=== PATIENT | male | born 1980 | race Caucasian/White ===

== ENCOUNTER 2024-07-09 15:00 | Emergency (ER) | payer MEDICARE, MEDICAID, SELFPAY ==
[2024-07-09 15:01] VITALS: BMI 26.6
[2024-07-09 15:26] VITALS: BP 154/91; PULSE 125; RESP 20; TEMP 39.6; O2SAT 100
--- NOTE | 2024-07-09 15:31 | XR_ITS ---
Examination: PA lateral chest 2 views AP liver. The liver shows 2 views Presented time: July 09, 2024 1615 hours INDICATIONS: Coughing fever beginning 2 days ago. FINDINGS: Basilar bronchitis pattern. No lobar pneumonia. Normal heart size IMPRESSION: Perihilar bronchitis pattern
--- NOTE | 2024-07-09 15:32 | PD.EDRME ---
Rapid Medical Screening Exam RME Arrival date/time: 07/09/24 15:00 43-year-old male with a history of developmentally delayed presents to the emergency room with a chief complaint of cough, fever x 2 days I have greeted and performed a focused initial assessment of this patient. A comprehensive ED assessment and evaluation of the patient, analysis of all test results, and completion of the medical decision making process will be conducted by additional ED providers. Chief Complaint: Flu Like Symptoms Time Seen by Provider: 07/09/24 15:21 Vital signs: Vital Signs Temperature 103.2 F H 07/09/24 15:26 Pulse Rate 125 H 07/09/24 15:26 Respiratory Rate 20 07/09/24 15:26 Blood Pressure 154/91 H 07/09/24 15:26 Pulse Oximetry (%) 100 07/09/24 15:26 Oxygen Delivery Method Room Air 07/09/24 15:26 Vital signs reviewed by provider: Yes
[2024-07-09 15:45] VITALS: TEMP 39.6
[2024-07-09] MEDS: ACETAMINOPHEN 500 MG TABLET 1000 MG PO (15:45)
[2024-07-09] MEDS: IBUPROFEN TAB 600 MG TABLET PO (15:45)
[2024-07-09 15:54] LABS: Lactate (Lactic Acid) 3.4 mMol/L (0.4-2.0)
[2024-07-09 15:58] LABS: Basophils % (Auto) 0 % (0-2.5); Eosinophils % (Auto) 0 % (0-10); Hematocrit 34.7 % (41.0-53.0); Hemoglobin 11.9 g/dL (13.5-16.0); Immature Granulocytes % (Auto) 0 % (0-0); Immature Granulocytes Auto 0.02 Thou/mm3 (0.00-0.00); Lymphocytes % (Auto) 15 % (10-50); Mean Corpuscular HGB Conc 34.3 g/dl (31.0-37.0); Mean Corpuscular Hemoglobin 30.9 pg (25.0-35.0); Mean Corpuscular Volume 90 fL (80-100); Monocytes # (Auto) 0.7 Thou/mm3 (0.0-0.8); Monocytes % (Auto) 11 % (0-12); Neutrophils # (Auto) 4.8 Thou/mm3 (1.8-7.7); Neutrophils % (Auto) 74 % (37-80); Nucleated Red Blood Cell % 0 /100 WBC (0); Red Blood Count 3.85 Miln/mm3 (4.50-5.90); White Blood Count 6.5 Thou/mm3 (3.8-10.6)
[2024-07-09 16:20] LABS: Alanine Aminotransferase 95 U/L (10-49); Albumin, Serum 4.4 gm/dL (3.5-5.0); Albumin/Globulin Ratio 1.2 (1.2-2.2); Alkaline Phosphatase 383 U/L (46-116); Anion Gap 11 (7-16); Aspartate Amino Transferase 59 U/L (0-34); BUN/Creatinine Ratio 15 Ratio (12-20); Bilirubin,Total 0.4 mg/dL (0.3-1.2); Blood Urea Nitrogen 16 mg/dL (9-23); Calcium 9.4 mg/dL (8.3-10.6); Calcium (Corrected) 9.4 mg/dL (8.5-10.1); Carbon Dioxide 26.2 mMol/L (20.0-31.0); Chloride 98 mMol/L (98-107); Creatinine (Component) 1.1 mg/dL (0.6-1.3); Estimated Creatinine Clearance 87.5 mL/min (>60); Globulin 3.7 gm/dL (2.3-3.5); Glucose 111 mg/dL (74-106); Osmolality,Calculated 272 (275-295); Potassium 4.6 mMol/L (3.4-5.1); Procalcitonin 0.11 ng/ml (0.0-0.49); Sodium 135 mMol/L (136-145); Total Protein 8.1 gm/dL (5.7-8.2); eGFR > 60 See Note
[2024-07-09 16:42] LABS: Platelet Count 67 Thou/mm3 (140-440); Slide Review Platelets confirmed
[2024-07-09 18:50] LABS: Reflex Lactate? Y
--- NOTE | 2024-07-09 19:08 | PC.NURSE ---
CALLED PT IN ER LOBBY AND OUTSIDE AND NO ANSWER.
[2024-07-09 19:18] LABS: Lactic Acid, 3 HR 1.1 mMol/L (0.4-2.0)
[2024-07-09 19:20] VITALS: TEMP 37.4
--- NOTE | 2024-07-09 19:25 | PD.EDADULT ---
ED General RME/HPI General Chief complaint: Flu Like Symptoms Stated complaint: Fever Time Seen by Provider: 07/09/24 15:21 Arrival date/time: 07/09/24 15:00 CC: Fever HPI ongoing for the past 2 days. The patient has a moderate intellectual disability along with a seizure disorder. Patient presents to the ER from [facility] care facility with a service worker helper for fever x 2 days no nausea vomiting cough is appreciated. Patient is stoic, has high tolerance level. Patient is initially noted to have a temperature of 103.2 was given 1000 mg of Tylenol and 600 mg of ibuprofen. Currently at the time of the exam at 1925, the patient had a temperature of 99.1. He is awake alert looking around appears not in any acute distress. RME / HPI RME / HPI narrative: 07/09/24 15:00 43-year-old male with a history of developmentally delayed presents to the emergency room with a chief complaint of cough, fever x 2 days I have greeted and performed a focused initial assessment of this patient. A comprehensive ED assessment and evaluation of the patient, analysis of all test results, and completion of the medical decision making process will be conducted by additional ED providers. Related Data Home Medications ?Medication ?Instructions ?Recorded ?Confirmed aripiprazole 10 mg tablet (Abilify) 10 mg PO QDAY 07/09/18 04/04/23 baclofen 10 mg tablet 10 mg PO BID 07/09/18 04/04/23 chlorpheniramine maleate 4 mg 4 mg PO Q4H 07/09/18 04/04/23 tablet (Aller-Chlor) divalproex 500 mg tablet,delayed 500 mg PO BID 07/09/18 04/04/23 release lansoprazole 15 mg capsule,delayed 15 mg PO QDAY 07/09/18 04/04/23 release levetiracetam 500 mg tablet 500 mg PO BID 07/09/18 04/04/23 loratadine 10 mg tablet 10 mg PO QDAY 07/09/18 04/04/23 polyethylene glycol 3350 17 gram 17 g PO QDAY 07/09/18 04/04/23 oral powder packet risperidone 1 mg tablet 1 mg PO BID 07/09/18 04/04/23 Previous Rx's ?Medication ?Instructions ?Recorded acetaminophen 500 mg tablet 500 mg PO Q6H PRN fever #30 tabs 04/04/20 (Tylenol Extra Strength) albuterol sulfate 90 mcg/actuation 1 inh inhalation QID PRN shortness 04/04/20 aerosol inhaler (Ventolin HFA) of breath or wheezing #6.7 grams ondansetron 4 mg disintegrating 4 mg PO Q8H PRN nausea and 04/04/20 tablet vomiting #14 tabs benzonatate 200 mg capsule 200 mg PO TID PRN cough #30 caps 02/22/22 oseltamivir 75 mg capsule (Tamiflu) 75 mg PO BID 5 days #10 caps 07/09/24 Allergies Allergy/AdvReac Type Severity Reaction Status Date / Time No Known Allergies Allergy Unverified 02/22/22 18:08 Review of Systems Review of Systems Narrative Review of Systems: Per care provider: GEN: + fever, no chills, no weight loss EYES: No discharge, no visual changes, no pain HEENT: No ear pain, no congestion, no sore throat PULM: No shortness of breath, no cough, no congestion CV: No chest pain, no dyspnea on exertion, no palpitations GI: No nausea, no vomiting, no diarrhea, no pain, no constipation : No frequency, no urgency, no dysuria MUSC/SKEL: No joint pain, no back pain SKIN: No rash PSYCH: No hallucinations, no depression HEME/LYMPH: No easy bleeding or bruising tendencies NEURO: No weakness, no headache Past Medical History Past Medical History NEUROLOGIC: Positive Seizures CARDIAC: Negative Cardiac Disorders or Congestive Heart Failure RESPIRATORY: Negative Chronic Obstructive Pulmonary Disease (COPD) or Asthma GENITOURINARY: Negative Renal Disease ENDOCRINE: Negative Diabetes Mellitus Type 1 or Diabetes Mellitus Type 2 HEMATOLOGIC: Negative Sickle Cell Disease Social History SMOKING STATUS: Never smoker SUBSTANCE USE: does not use ED Exam Narrative Physical exam: [General: Appears not in any acute distress Head normocephalic HEENT: Within acceptable limits Neck is supple nontender Chest equal chest rise nontender to palpation Respiratory: Clear to auscultation no wheezes crackles or rubs CV: Rate rhythm is regular no murmurs rubs or clicks Abdomen is distended secondary to body habitus soft nontender no masses positive bowel sounds all 4 quadrants Back: No CVA tenderness no spinous process tenderness from cervical spine thoracic and lumbar spine Skin: Intact no petechiae rash induration ulceration or crepitus Extremities: Moving all extremity against resistance cap refill less than 2 seconds neurosensory intact Neuro: Awake alert oriented x3 Glascow coma 15 no focal deficits] Course Quality Measures none Orders Category Date Time Status Bedside COVID-19 Antigen Test NOW Care 07/09/24 15:31 Completed Bedside Influenza A&B Antigen Test NOW Care 07/09/24 15:31 Completed Insert IV STAT Care 07/09/24 15:41 Completed XR chest 2V Stat Exams 07/09/24 15:31 Completed Blood Culture (Lab) Stat Lab 07/09/24 15:44 Received CBC Stat Lab 07/09/24 15:44 Completed CMP [Comprehensive Metabolic Panel] Stat Lab 07/09/24 15:44 Completed Lactate (Lactic Acid) Stat Lab 07/09/24 15:44 Completed Lactic Acid, 3 HR Stat Lab 07/09/24 19:10 Completed Procalcitonin Stat Lab 07/09/24 15:44 Completed Acetaminophen Tab [Tylenol ES Tab] Med 07/09/24 15:41 Discontinued 1,000 mg PO X1 ONE Ibuprofen Tab [Motrin Tab] Med 07/09/24 15:41 Discontinued 600 mg PO X1 ONE Vital Signs Vital signs: Vital Signs Temperature 103.2 F H 07/09/24 15:26 Pulse Rate 125 H 07/09/24 15:26 Respiratory Rate 20 07/09/24 15:26 Blood Pressure 154/91 H 07/09/24 15:26 Pulse Oximetry (%) 100 07/09/24 15:26 Oxygen Delivery Method Room Air 07/09/24 15:26 [facility] Patient data External records reviewed:: [facility] previous records Clinical information provided by:: patient and service worker helper Social determinants that could affect healthcare access:: none Patient has the following chronic illnesses:: Intellectual disability, seizure disorder How is presenting disease/condition affected by chronic disease/condition?: no chronic disease Evaluation data The following diagnostics were reviewed and interpreted by me:: lab results, radiology exam(s) and EKG tracing(s) Lab and/or radiology exams considered but not ordered:: Influenza A positive CBC shows no acute leukocytosis and H&H of 11.9 and 34.7 respectively platelets at 67. CMP shows no significant electrolyte imbalances renal impairment. transaminitis is mild with an AST of 59 ALT of 95 alk phos of 383. Initial lactic acid 3.4 repeat is negative. Procalcitonin is negative. Chest x-ray shows mild bronchitis pattern Interpretation Summary: Is influenza A. I am concerned about this patient but also more concerned about all the other debilitated patients at the same facility who might wind up have influenza A and was advised the service worker helper that everybody is to wear masks. Medications Medications considered but not ordered:: None Medication administrations:: Medication Administration History Discontinued Medications Acetaminophen (Acetaminophen 500 Mg Tablet) 1,000 mg PO X1 ONE Stop: 07/09/24 15:42 Last Admin: 07/09/24 15:45 Dose: 1,000 mg Documented By: Ibuprofen (Ibuprofen Tab 600 Mg Tablet) 600 mg PO X1 ONE Stop: 07/09/24 15:42 Last Admin: 07/09/24 15:45 Dose: 600 mg Documented By: None Consultations Consultation(s) initiated? (list below): No Diagnosis Differential Diagnosis ED Complaint MDM: Influenza pneumonia sepsis Most likely diagnosis given after review of the tests above:: Influenza Admission Indicated Admission indicated?: not indicated Explain why admission is indicated or not indicated:: Stable for outpatient follow-up Admission Request Was there a request for admission?: No Disposition Plan Disposition Plan: Discharge Discharge Attestation Discharge Attestation: The patient and all family members were given an opportunity to ask questions and understood the discharge instructions. Discharge instructions specifically effects, indications for sooner follow up or return to the emergency department, and the expected course of current diagnosis. Patient condition: Stable Medical Decision Making Differential Diagnosis Differential Diagnosis: Influenza pneumonia sepsis Lab Data 07/09/24 15:44 07/09/24 15:44 Labs: Lab Results 07/09/24 07/09/24 Range/Units 15:44 19:10 WBC 6.5 (3.8-10.6) Thou/mm3 RBC 3.85 L (4.50-5.90) Miln/mm3 Hgb 11.9 L (13.5-16.0) g/dL Hct 34.7 L (41.0-53.0) % MCV 90 (80-100) fL MCH 30.9 (25.0-35.0) pg MCHC 34.3 (31.0-37.0) g/dl RDW Std Deviation 42.0 (35.1-43.9) fL Plt Count 67 L (140-440) Thou/mm3 Neut % (Auto) 74 (37-80) % Lymph % (Auto) 15 (10-50) % Pike % (Auto) 11 (0-12) % Eos % (Auto) 0 (0-10) % Baso % (Auto) 0 (0-2.5) % Neut # (Auto) 4.8 (1.8-7.7) Thou/mm3 Lymph # (Auto) 1.0 (1.0-4.8) Thou/mm3 Pike # (Auto) 0.7 (0.0-0.8) Thou/mm3 Eos # (Auto) 0.0 (0.0-0.5) Thou/mm3 Baso # (Auto) 0.0 (0.0-0.2) Thou/mm3 Immature Gran # (Auto) 0.02 H (0.00-0.00) Thou/mm3 Absolute Nucleated RBC 0.00 (0.00-0.00) Thou/mm3 Immature Gran % 0 (0-0) % Nucleated RBC % 0 (0) /100 WBC Sodium 135 L (136-145) mMol/L Potassium 4.6 (3.4-5.1) mMol/L Chloride 98 (98-107) mMol/L Carbon Dioxide 26.2 (20.0-31.0) mMol/L Anion Gap 11 (7-16) BUN 16 (9-23) mg/dL Creatinine 1.1 (0.6-1.3) mg/dL Estim Creat Clear Calc 87.5 (>60) mL/min eGFR > 60 (60 - ) See Note BUN/Creatinine Ratio 15 (12-20) Ratio Glucose 111 H (74-106) mg/dL Calculated Osmolality 272 L (275-295) Lactic Acid 3.4 H 1.1 (0.4-2.0) mMol/L Calcium 9.4 (8.3-10.6) mg/dL Corrected Calcium 9.4 (8.5-10.1) mg/dL Total Bilirubin 0.4 (0.3-1.2) mg/dL AST 59 H (0-34) U/L ALT 95 H (10-49) U/L Alkaline Phosphatase 383 H (46-116) U/L Total Protein 8.1 (5.7-8.2) gm/dL Albumin 4.4 (3.5-5.0) gm/dL Globulin 3.7 H (2.3-3.5) gm/dL Albumin/Globulin Ratio 1.2 (1.2-2.2) Procalcitonin 0.11 (0.0-0.49) ng/ml Misc Test Result Platelets confirmed Discharge Plan Plan Patient Disposition: HOME (Self Care) Patient condition on transfer: Stable Prescriptions/Referrals Prescriptions/Med Rec: New oseltamivir [Tamiflu] 75 mg capsule 75 mg PO BID 5 Days Qty: 10 0RF No Action ondansetron 4 mg tablet,disintegrating 4 mg PO Q8H PRN (Reason: nausea and vomiting) Qty: 14 0RF albuterol sulfate [Ventolin HFA] 90 mcg/actuation HFA aerosol inhaler 1 inh inhalation QID PRN (Reason: shortness of breath or wheezing) Qty: 6.7 0RF acetaminophen [Tylenol Extra Strength] 500 mg tablet 500 mg PO Q6H PRN (Reason: fever) Qty: 30 0RF chlorpheniramine maleate [Aller-Chlor] 4 mg Tablet 4 mg PO Q4H polyethylene glycol 3350 17 gram Powder In Packet 17 g PO QDAY levetiracetam 500 mg Tablet 500 mg PO BID divalproex 500 mg Tablet,Delayed Release (Dr/Ec) 500 mg PO BID baclofen 10 mg Tablet 10 mg PO BID lansoprazole 15 mg Capsule,Delayed Release(Dr/Ec) 15 mg PO QDAY risperidone 1 mg Tablet 1 mg PO BID loratadine 10 mg Tablet 10 mg PO QDAY aripiprazole [Abilify] 10 mg Tablet 10 mg PO QDAY benzonatate 200 mg capsule 200 mg PO TID PRN (Reason: cough) Qty: 30 0RF Referrals: Lico Sanchez MD [Primary Care Provider] - In 1 week Problem List Clinical Impression: Influenza A Patient/Caregiver Discharge Instructions Education Materials: ED Influenza (Adult) Additional Instructions: Take the medicine as until its gone. Please wear a mask around at all times. Ibuprofen or Tylenol for fever, encourage plenty of fluids. If there is worsening of symptoms in spite of these medications return the emergency room for reevaluation. Print Language: Yakut Stand Alone Forms: Isabel Award Info., Work/School Release, Patient Portal Info Letter PA/CHANNEL MANAGER Supervising Physician PA/CHANNEL MANAGER Supervising Physician: Theron Barron ENP
[2024-07-09 19:28] VITALS: BP 115/82; PULSE 86; RESP 18; TEMP 37.4; O2SAT 99
== END 2024-07-09 19:53 | disposition home or self-care (01) ==
PROVIDERS: Nurse Practitioner Family; Emergency Provider Emergency Medicine; PCP Family Medicine
DX: J10.1 Influenza due to other identified influenza virus with other respiratory manifestations (principal); F71 Moderate intellectual disabilities
CPT/HCPCS: 36415; 71046; 80053; 81001; 83605; 84145; 85025; 87040; 87086; 87400; 87811; 99283; A9270

== ENCOUNTER 2024-07-12 19:36 | Emergency (ER) | payer MEDICARE, MEDICAID, SELFPAY ==
[2024-07-12 19:38] VITALS: BMI 17.8
[2024-07-12 21:37] VITALS: BP 108/69; PULSE 114; RESP 19; TEMP 38.4; O2SAT 93
--- NOTE | 2024-07-12 21:47 | EKG_ITS ---
[facility] Test Date: 2024-07-12 Pat Name: MISA SHORE Department: Room: - Gender: Male [employer]: : 1980 Requested By: Jackson Aguilar Order Number: [id number] Reading MD: Jackson Aguilar Measurements Intervals [place] Rate: 112 P: 46 CT: 100 QRS: 33 QRSD: 96 T: 17 QT: 300 QTc: 410 Interpretive Statements SINUS TACHYCARDIA WITH SHORT CT INTERVAL INCOMPLETE RIGHT BUNDLE BRANCH BLOCK [90+ ms QRS DURATION, TERMINAL R IN V1/V2, 40+ ms S IN I/aVL/V4/V5/V6] ABNORMAL RHYTHM ECG Compared to ECG 04/03/2023 18:41:[address] interval now present Incomplete right bundle-branch block now present /store/S0/[id number].pdf
--- NOTE | 2024-07-12 21:47 | XR_ITS ---
Examination: AP chest single view Technique one AP sitting portable chest single view Exam date and time: July 12, 2024 1025 hrs. Indications: Shortness of breath hypoxia today Findings: Significant bilateral pneumonia Normal heart size The osseous structures are intact Impression: Significant bilateral pneumonia
--- NOTE | 2024-07-12 22:06 | PD.EDSOB ---
ED SOB =RME/HPI General Chief Complaint: Shortness of Breath/Dyspnea Stated Complaint: USING ABDOMINAL MUSCLES TO BREATH Time Seen by Provider: 07/12/24 21:22 Arrival date/time: 07/12/24 19:36 RME / HPI RME / HPI Narrative: Recently diagnosed with flu. Started on azithromycin today no dose given. Using ability to breathe. Intermittent fever. Related Data Home Medications ?Medication ?Instructions ?Recorded ?Confirmed aripiprazole 10 mg tablet (Abilify) 10 mg PO QDAY 07/09/18 04/04/23 baclofen 10 mg tablet 10 mg PO BID 07/09/18 04/04/23 chlorpheniramine maleate 4 mg 4 mg PO Q4H 07/09/18 04/04/23 tablet (Aller-Chlor) divalproex 500 mg tablet,delayed 500 mg PO BID 07/09/18 04/04/23 release lansoprazole 15 mg capsule,delayed 15 mg PO QDAY 07/09/18 04/04/23 release levetiracetam 500 mg tablet 500 mg PO BID 07/09/18 04/04/23 loratadine 10 mg tablet 10 mg PO QDAY 07/09/18 04/04/23 polyethylene glycol 3350 17 gram 17 g PO QDAY 07/09/18 04/04/23 oral powder packet risperidone 1 mg tablet 1 mg PO BID 07/09/18 04/04/23 Previous Rx's ?Medication ?Instructions ?Recorded acetaminophen 500 mg tablet 500 mg PO Q6H PRN fever #30 tabs 04/04/20 (Tylenol Extra Strength) albuterol sulfate 90 mcg/actuation 1 inh inhalation QID PRN shortness 04/04/20 aerosol inhaler (Ventolin HFA) of breath or wheezing #6.7 grams ondansetron 4 mg disintegrating 4 mg PO Q8H PRN nausea and 04/04/20 tablet vomiting #14 tabs benzonatate 200 mg capsule 200 mg PO TID PRN cough #30 caps 02/22/22 oseltamivir 75 mg capsule (Tamiflu) 75 mg PO BID 5 days #10 caps 07/09/24 amoxicillin 875 mg-potassium 1 tab PO BID 10 days #20 tabs 07/13/24 clavulanate 125 mg tablet doxycycline hyclate 100 mg capsule 100 mg PO BID pneumonia 10 days 07/13/24 #20 caps Allergies Allergy/AdvReac Type Severity Reaction Status Date / Time No Known Allergies Allergy Verified 07/12/24 19:38 Course Orders Category Date Time Status EKG (ED ONLY) *Do not use* NOW Care 07/12/24 21:47 Completed Insert IV NOW Care 07/12/24 21:47 Active CXR2 [XR chest 2V] Stat Exams 07/12/24 21:47 Completed EKG (ED Only) Stat Exams 07/12/24 21:47 Draft BMP [Basic Metabolic Panel] Stat Lab 07/12/24 22:16 Completed Blood Culture (Lab) Stat Lab 07/12/24 22:13 Received CBC Stat Lab 07/12/24 22:16 Completed Lactic Acid [Lactate (Lactic Acid)] Stat Lab 07/12/24 22:16 Completed Procalcitonin Stat Lab 07/12/24 22:16 Completed Albuterol/Ipratr Rt Susana [Duoneb Rt Susana] Med 07/12/24 21:47 Discontinued 3 ml INH X1 ONE Azithromycin Inj [Zithromax Inj] 500 mg Med 07/12/24 23:37 Discontinued Sodium Chloride 0.9% 250 ml [Ns] 250 ml IV X1 Ketorolac Inj [Toradol Inj] Med 07/12/24 21:47 Discontinued 30 mg IVP X1 ONE Sodium Chloride 0.9% 1000 ml [Ns] 1,000 ml Med 07/12/24 21:48 Discontinued IV 999 mls/hr cefTRIAXone/D5w 1gm IV premix [Rocephin/D5w 1gm IV Med 07/12/24 23:37 Discontinued premix] 1 gm in 50 ml IV X1 cefTRIAXone/D5w 1gm IV premix [Rocephin/D5w 1gm IV Med 07/12/24 23:39 Discontinued premix] 1 gm in 50 ml IV X1 Reevaluation(s) Reevaluation #1: IV fluids and IV of NOACs given. Temperature improved in the department. Discussed case with Dr. Ventura who is agreeable with plan for discharge and close outpatient follow-up. Stressed need for antibiotic compliance with patient's caregiver and need for close follow-up with primary care within the next 2 to 3 days. Time: 01:08 Vital Signs Vital signs: Vital Signs Temperature 101.1 F H 07/12/24 21:37 Pulse Rate 114 H 07/12/24 21:37 Respiratory Rate 19 07/12/24 21:37 Blood Pressure 108/69 07/12/24 21:37 Pulse Oximetry (%) 93 L 07/12/24 21:37 Oxygen Delivery Method Room Air 07/12/24 21:37 Shortness of Breath / Dyspnea Medications / Prescriptions Medication administrations:: Medication Administration History Discontinued Medications Albuterol/Ipratropium (Albuterol/Ipratropium (Duoneb) Rt Susana 3 Ml Nebu) 3 ml INH X1 ONE Stop: 07/12/24 21:48 Last Admin: 07/12/24 22:57 Dose: 3 ml Documented By: FELI Sodium Chloride (Ns) 1,000 mls @ 999 mls/hr IV .Q1H1M ONE Stop: 07/12/24 22:48 Last Infusion: 07/13/24 00:11 Dose: Infused Documented By: Admin: 07/12/24 22:53 Dose: 999 mls/hr Documented By: MECHELLE Ceftriaxone Sodium/Dextrose (Rocephin/D5w 1gm Iv Premix) 1 gm in 50 mls @ 100 mls/hr IV X1 ONE Stop: 07/13/24 00:06 Last Admin: 07/12/24 23:43 Dose: Not Given Documented By: MELINDA Non-Admin Reason: Cancelled by Provider Azithromycin 500 mg/ Sodium (Chloride) 250 mls @ 250 mls/hr IV X1 ONE Stop: 07/13/24 00:36 Last Admin: 07/13/24 00:10 Dose: 250 mls/hr Documented By: ISMAEL Ceftriaxone Sodium/Dextrose (Rocephin/D5w 1gm Iv Premix) 1 gm in 50 mls @ 100 mls/hr IV X1 ONE Stop: 07/13/24 00:08 Last Admin: 07/12/24 23:50 Dose: 100 mls/hr Documented By: ISMAEL Ketorolac Tromethamine (Ketorolac Inj 30 Mg/Ml Vial) 30 mg IVP X1 ONE Stop: 07/12/24 21:48 Last Admin: 07/12/24 22:52 Dose: 30 mg Documented By: MECHELLE Discharge Plan Plan Patient Disposition: HOME (Self Care) Disposition Comment: stable Prescriptions/Referrals Prescriptions/Med Rec: New amoxicillin-pot clavulanate 875-125 mg tablet 1 tab PO BID 10 Days Qty: 20 0RF doxycycline hyclate 100 mg capsule 100 mg PO BID 10 Days Qty: 20 0RF No Action ondansetron 4 mg tablet,disintegrating 4 mg PO Q8H PRN (Reason: nausea and vomiting) Qty: 14 0RF albuterol sulfate [Ventolin HFA] 90 mcg/actuation HFA aerosol inhaler 1 inh inhalation QID PRN (Reason: shortness of breath or wheezing) Qty: 6.7 0RF acetaminophen [Tylenol Extra Strength] 500 mg tablet 500 mg PO Q6H PRN (Reason: fever) Qty: 30 0RF chlorpheniramine maleate [Aller-Chlor] 4 mg Tablet 4 mg PO Q4H polyethylene glycol 3350 17 gram Powder In Packet 17 g PO QDAY levetiracetam 500 mg Tablet 500 mg PO BID divalproex 500 mg Tablet,Delayed Release (Dr/Ec) 500 mg PO BID baclofen 10 mg Tablet 10 mg PO BID lansoprazole 15 mg Capsule,Delayed Release(Dr/Ec) 15 mg PO QDAY risperidone 1 mg Tablet 1 mg PO BID loratadine 10 mg Tablet 10 mg PO QDAY aripiprazole [Abilify] 10 mg Tablet 10 mg PO QDAY benzonatate 200 mg capsule 200 mg PO TID PRN (Reason: cough) Qty: 30 0RF oseltamivir [Tamiflu] 75 mg capsule 75 mg PO BID 5 Days Qty: 10 0RF Referrals: No Primary/Family,Physician [Primary Care Provider] - In 1 week Problem List Clinical Impression: Pneumonia, Elevated procalcitonin Impression comment: Take Augmentin twice daily for the next x 10 days. Take doxycycline twice daily for the next 10 days. Continue to monitor closely and treat as needed with Tylenol or Motrin. Follow-up with primary care within the next 2 to 3 days for reevaluation. Return to the ED if patient's symptoms worsen or change. Patient/Caregiver Discharge Instructions Other Activity Instructions:: Take Augmentin twice daily for the next x 10 days. Take doxycycline twice daily for the next 10 days. Continue to monitor closely and treat as needed with Tylenol or Motrin. Follow-up with primary care within the next 2 to 3 days for reevaluation. Return to the ED if patient's symptoms worsen or change. Education Materials: ED Pneumonia (Adult) Print Language: Taiwanese Stand Alone Forms: Isabel Award Info., Patient Portal Info Letter NAYANA/SUPERVISOR FRONT Supervising Physician PA/SUPERVISOR FRONT Supervising Physician: Dr. Ventura
[2024-07-12 22:22] LABS: Lactate (Lactic Acid) 1.5 mMol/L (0.4-2.0)
[2024-07-12 22:28] LABS: Basophils % (Auto) 0 % (0-2.5); Eosinophils % (Auto) 0 % (0-10); Hematocrit 32.4 % (41.0-53.0); Hemoglobin 11.3 g/dL (13.5-16.0); Immature Granulocytes % (Auto) 0 % (0-0); Immature Granulocytes Auto 0.02 Thou/mm3 (0.00-0.00); Lymphocytes # (Auto) 0.4 Thou/mm3 (1.0-4.8); Lymphocytes % (Auto) 6 % (10-50); Mean Corpuscular HGB Conc 34.9 g/dl (31.0-37.0); Mean Corpuscular Volume 89 fL (80-100); Monocytes # (Auto) 0.2 Thou/mm3 (0.0-0.8); Monocytes % (Auto) 2 % (0-12); Neutrophils # (Auto) 6.4 Thou/mm3 (1.8-7.7); Neutrophils % (Auto) 91 % (37-80); Nucleated Red Blood Cell % 0 /100 WBC (0); RDW Standard Deviation 43.9 fL (35.1-43.9); Red Blood Count 3.65 Miln/mm3 (4.50-5.90)
[2024-07-12 22:48] LABS: Anion Gap 11 (7-16); BUN/Creatinine Ratio 23 Ratio (12-20); Blood Urea Nitrogen 32 mg/dL (9-23); Calcium 9.2 mg/dL (8.3-10.6); Carbon Dioxide 22.9 mMol/L (20.0-31.0); Chloride 99 mMol/L (98-107); Creatinine (Component) 1.4 mg/dL (0.6-1.3); Estimated Creatinine Clearance 69.7 mL/min (>60); Glucose 133 mg/dL (74-106); Osmolality,Calculated 275 (275-295); Potassium 4.2 mMol/L (3.4-5.1); Sodium 133 mMol/L (136-145); eGFR > 60 See Note
[2024-07-12] MEDS: KETOROLAC INJ 30 MG/ML VIAL IVP (22:52)
[2024-07-12 22:53] LABS: Procalcitonin 20.22 ng/ml (0.0-0.49)
[2024-07-12] MEDS: SODIUM CHLORIDE 0.9% 1000 ML 1,000 ML 999 ML IV (22:53)
[2024-07-12] MEDS: ALBUTEROL/IPRATROPIUM (Duoneb) RT SOL 3 ML NEBU INH (22:57)
[2024-07-12 22:58] VITALS: PULSE 118; RESP 21; O2SAT 97
[2024-07-12 22:58] LABS: Platelet Count 84 Thou/mm3 (140-440)
[2024-07-12 23:43] VITALS: TEMP 37.8
[2024-07-12] MEDS: cefTRIAXone/D5w 1gm IV premix 1 GM/50 ML BAG IV (23:50)
[2024-07-13] MEDS: AZITHROMYCIN INJ 500 MG in SODIUM CHLORIDE 0.9% 250 ML 250 ML 250 MG IV (00:10)
== END 2024-07-13 01:25 | disposition home or self-care (01) ==
PROVIDERS: Physician Assistant; Emergency Provider Emergency Medicine
DX: J18.9 Pneumonia, unspecified organism (principal)
CPT/HCPCS: 36415; 71046; 80048; 83605; 84145; 85025; 87040; 93005; 94640; 96361; 96374; 99284; A9270; J0456; J0696; J1885; J7030; J7050

== ENCOUNTER 2025-03-27 15:29 | Emergency (ER) | payer MEDICARE, MEDICAID, SELFPAY ==
[2025-03-27 16:28] VITALS: BP 135/85; PULSE 102; RESP 16; TEMP 37.5; O2SAT 99
--- NOTE | 2025-03-27 16:41 | PD.EDRME ---
Rapid Medical Screening Exam E Arrival date/time: 03/27/25 15:29 This is a 44-year-old male that comes into the emergency room with complaints of cough. [facility] [place] with other [facility]. Per staff there is other people in the facility that are sick. Patient has a history of intellectual disability and seizures. Patient does not seem to be verbal or have any complaints at this time. I have greeted and performed a focused initial assessment of this patient. Initial appropriate labs ordered at this time. A comprehensive ED assessment and evaluation of the patient and analysis of all test and completion of medical decision making process will be conducted by additional ED provider. Chief Complaint: General Adult/Misc Complain Time Seen by Provider: 03/27/25 16:33 Vital signs: Vital Signs Temperature 99.5 F 03/27/25 16:28 Pulse Rate 102 H 03/27/25 16:28 Respiratory Rate 16 03/27/25 16:28 Blood Pressure 135/85 H 03/27/25 16:28 Pulse Oximetry (%) 99 03/27/25 16:28 Oxygen Delivery Method Room Air 03/27/25 16:28 Exam: Awake and alert, breathing and unlabored Clinical Impression: Cough
--- NOTE | 2025-03-27 16:42 | XR_ITS ---
EXAMINATION: PA chest single view TECHNIQUE: Upright PA chest single view Date and time: March 27, 2025, 1653 hours INDICATION: Coughing beginning 2 days ago. FINDINGS: Early left perihilar bibasilar pneumonia Normal heart size Intact osseous structures IMPRESSION: Early left perihilar bibasilar pneumonia
--- NOTE | 2025-03-27 18:51 | PD.EDADULT ---
ED General RME/HPI General Chief complaint: General Adult/Misc Complain Stated complaint: COUGH, SENT BY [facility] FOR LOW BP Time Seen by Provider: 03/27/25 16:33 Arrival date/time: 03/27/25 15:29 RME / HPI RME / HPI narrative: 03/27/25 15:29 This is a 44-year-old male that comes into the emergency room with complaints of cough. Patient lives in a prison with other residents. Per staff there is other people in the facility that are sick. Patient has a history of intellectual disability and seizures. Patient does not seem to be verbal or have any complaints at this time. I have greeted and performed a focused initial assessment of this patient. Initial appropriate labs ordered at this time. A comprehensive ED assessment and evaluation of the patient and analysis of all test and completion of medical decision making process will be conducted by additional ED provider. Dr. Mariee?s Main ED Evaluation: 44yo male with a history of developmental delay, seizure disordere BIB his caregiver presents to the ED for a chief complaint of a cough x yesterday. Caregiver states the patient has been around others at the penitentiary who have been sick with a cough. Caregiver denies any fever or any other associated symptoms. NKA. Related Data Home Medications ?Medication ?Instructions ?Recorded ?Confirmed aripiprazole 10 mg tablet (Abilify) 10 mg PO QDAY 07/09/18 04/04/23 baclofen 10 mg tablet 10 mg PO BID 07/09/18 04/04/23 chlorpheniramine maleate 4 mg 4 mg PO Q4H 07/09/18 04/04/23 tablet (Aller-Chlor) divalproex 500 mg tablet,delayed 500 mg PO BID 07/09/18 04/04/23 release lansoprazole 15 mg capsule,delayed 15 mg PO QDAY 07/09/18 04/04/23 release levetiracetam 500 mg tablet 500 mg PO BID 07/09/18 04/04/23 loratadine 10 mg tablet 10 mg PO QDAY 07/09/18 04/04/23 polyethylene glycol 3350 17 gram 17 g PO QDAY 07/09/18 04/04/23 oral powder packet risperidone 1 mg tablet 1 mg PO BID 07/09/18 04/04/23 Previous Rx's ?Medication ?Instructions ?Recorded acetaminophen 500 mg tablet 500 mg PO Q6H PRN fever #30 tabs 04/04/20 (Tylenol Extra Strength) albuterol sulfate 90 mcg/actuation 1 inh inhalation QID PRN shortness 04/04/20 aerosol inhaler (Ventolin HFA) of breath or wheezing #6.7 grams ondansetron 4 mg disintegrating 4 mg PO Q8H PRN nausea and 04/04/20 tablet vomiting #14 tabs benzonatate 200 mg capsule 200 mg PO TID PRN cough #30 caps 02/22/22 doxycycline hyclate 100 mg tablet 100 mg PO BID 7 days #14 tabs 03/27/25 Allergies Allergy/AdvReac Type Severity Reaction Status Date / Time No Known Allergies Allergy Verified 03/27/25 15:32 Review of Systems Review of Systems Systems Reviewed: All systems reviewed, normal except as documented Past Medical History Past Medical History NEUROLOGIC: Positive Seizures CARDIAC: Negative Cardiac Disorders or Congestive Heart Failure RESPIRATORY: Negative Chronic Obstructive Pulmonary Disease (COPD) or Asthma GENITOURINARY: Negative Renal Disease ENDOCRINE: Negative Diabetes Mellitus Type 1 or Diabetes Mellitus Type 2 HEMATOLOGIC: Negative Sickle Cell Disease Social History SMOKING STATUS: Never smoker SUBSTANCE USE: does not use ED Exam Narrative Physical exam: Generally patient is in no acute distress and slightly mentally delayed, heart regular rate and rhythm, lungs clear to auscultation equal laterally, abdomen soft nontender distended and nontender, extremities show no edema, neurologic exam shows patient be mildly mentally delayed. No focal motor deficits. Course Quality Measures none Orders Category Date Time Status Bedside COVID-19 Antigen Test NOW Care 03/27/25 16:42 Active Bedside Influenza A&B Antigen Test NOW Care 03/27/25 16:43 Completed XR chest 1V Stat Exams 03/27/25 16:42 Completed Vital Signs Vital signs: Vital Signs Temperature 99.5 F 03/27/25 16:28 Pulse Rate 102 H 03/27/25 16:28 Respiratory Rate 16 03/27/25 16:28 Blood Pressure 135/85 H 03/27/25 16:28 Pulse Oximetry (%) 99 03/27/25 16:28 Oxygen Delivery Method Room Air 03/27/25 16:28 Discharge Plan Plan Patient Disposition: HOME (Self Care) Prescriptions/Referrals Prescriptions/Med Rec: New doxycycline hyclate 100 mg tablet 100 mg PO BID 7 Days Qty: 14 0RF No Action ondansetron 4 mg tablet,disintegrating 4 mg PO Q8H PRN (Reason: nausea and vomiting) Qty: 14 0RF albuterol sulfate [Ventolin HFA] 90 mcg/actuation HFA aerosol inhaler 1 inh inhalation QID PRN (Reason: shortness of breath or wheezing) Qty: 6.7 0RF acetaminophen [Tylenol Extra Strength] 500 mg tablet 500 mg PO Q6H PRN (Reason: fever) Qty: 30 0RF chlorpheniramine maleate [Aller-Chlor] 4 mg Tablet 4 mg PO Q4H polyethylene glycol 3350 17 gram Powder In Packet 17 g PO QDAY levetiracetam 500 mg Tablet 500 mg PO BID divalproex 500 mg Tablet,Delayed Release (Dr/Ec) 500 mg PO BID baclofen 10 mg Tablet 10 mg PO BID lansoprazole 15 mg Capsule,Delayed Release(Dr/Ec) 15 mg PO QDAY risperidone 1 mg Tablet 1 mg PO BID loratadine 10 mg Tablet 10 mg PO QDAY aripiprazole [Abilify] 10 mg Tablet 10 mg PO QDAY benzonatate 200 mg capsule 200 mg PO TID PRN (Reason: cough) Qty: 30 0RF Referrals: Lico Sanchez MD [Primary Care Provider, Family Practice] - In 1 week Problem List Clinical Impression: Pneumonia Patient/Caregiver Discharge Instructions Education Materials: ED Pneumonia (Adult) Additional Instructions: Take the antibiotic as prescribed. Print Language: [place] Stand Alone Forms: Isabel Award Info., Patient Portal Info Letter MDM Narrative MDM hospital course (for use when minimal MDM required): Scribe Attestation: 03/27/25 - Alexandria Pichardo am scribing for and in the presence of Dr. Mariee. COVID and flu testing was negative. Chest x-ray shows the possibility of an early left perihilar infiltrate. Doxycycline as prescribed. Patient can follow-up with his doctor. Return to ER as needed or if condition worsens. Clinical Information Other: Provided by caregiver Medical Records reviewed [facility] (Per chart review, patient was seen here on 07/12/24 for elevated procalcitonin.) Meds/Rx considered, not ordered None Labs/Rad/Tests considered, not ordered None Chronic Illness/Social Conditions Explain: Hx seizures Labs Labs: interpreted by me Imaging Imaging interpretation: interpreted by me Imaging Interpretation(s): [facility] Report Signed Patient: MISA SHORE. Record#: [id number] Birthdate: 1980 Age/Sex: 44 / M Location: [facility] Attending Dr: Ordering Physician: Alicja Saldana NP Date of Service: 03/27/25 Procedure(s): XR chest 1V Accession Number(s): [id number] cc: Tejinder Jacob MD; Alicja Saldana NP~ EXAMINATION: PA chest single view TECHNIQUE: Upright PA chest single view Date and time: March 27, 2025, 1653 hours INDICATION: Coughing beginning 2 days ago. FINDINGS: Early left perihilar bibasilar pneumonia Normal heart size Intact osseous structures IMPRESSION: Early left perihilar bibasilar pneumonia Dictated By: Tejinder Jacob MD Signed By: <Electronically signed by Tejinder Jacob MD in [place]> 03/27/25 [id number] Medication Administration(s) none Diagnosis Differential Diagnosis ED Complaint MDM: See MDM
== END 2025-03-27 19:30 | disposition home or self-care (01) ==
PROVIDERS: Emergency Provider Emergency Medicine; PCP Family Medicine
DX: J18.9 Pneumonia, unspecified organism (principal)
CPT/HCPCS: 71045; 87502; 87635; 99282